=== PATIENT | male | born 1965 | race Caucasian/White ===

== ENCOUNTER 2021-01-08 08:35 | Day surgery (SDC) | payer MEDICARE, MEDICAID ==
[2021-01-07 14:32] LABS: BASOPHILS 0.2 % (0-2); EOSINOPHILS 2.7 % (0-7); HEMATOCRIT 46.1 % (42.0-54.0); HEMOGLOBIN 15.3 g/dL (13.5-17.5); IMMATURE GRANULOCYTES 0.6 % (0-5); LYMPHOCYTE ABS# 1.75 10x3/uL (1.32-3.57); LYMPHOCYTES 18.9 % (15-50); MCH 27.1 pg (26.0-34.0); MCHC 33.2 g/dL (31.0-37.0); MCV 81.7 fL (80.0-100.0); MEAN PLATELET VOLUME 9.5 fL (7.4-10.4); MONOCYTES 8.5 % (2-11); NEUTROPHIL ABS# 6.39 10x3/uL (1.78-5.38); NEUTROPHILS 69.1 % (40-80); PLATELET COUNT 248 10x3/uL (130-400); RBC 5.64 10x6/uL (4.20-6.10); WBC 9.3 10x3/uL (4.8-10.8)
[2021-01-07 14:44] LABS: ANION GAP 11.8 mmol/L (8-16); CARBON DIOXIDE 28.3 mmol/L (21.0-32.0); CREATININE - SERUM 1.2 mg/dL (0.6-1.3); POTASSIUM - SERUM 4.1 mmol/L (3.5-5.1)
[~2021-01-08] VITALS: Ht 165.1 cm; Wt 124.7 kg
[~2021-01-08 08:35] MED LIST: ABILIFY10 MG PO; ALBUTEROL SULF8.5 GM INH; AMBIEN10 MG PO; ATARAX 25 MG TA25 MG PO; CELEXA20 MG PO; FUROSEMIDE20 MG PO; GLUCOPHAGE500 MG PO; HYDROCODON-ACE1 EA10 PO; LEVEMIR IN100 UNITS/ SC; LOPRESSOR25 MG PO; LYRICA75 MG PO; NEXIUM40 MG PO; NOVOLOG100 UNIT/1 SC; SYMBICORT 16010.2 GM INH; ZANAFLEX4 MG PO; ZOCOR40 MG PO
[2021-01-08 09:00] VITALS: BP 132/71; Ht 165.1 cm; Wt 124.7 kg
--- NOTE | 2021-01-08 09:18 | NUR ---
PT HAS HERNIA TO UMBILICAL AREA, AREA ON ABD IS RED AND RAISED, PT STATES THAT IT IS NONTENDER.
[2021-01-08] MEDS ORDERED: HYDROCODON-ACE1 EA10 PO (12:26)
--- NOTE | 2021-01-08 14:19 | NUR ---
1415 PATIENT REQUESTED TO SIT ON SIDE OF BED TO ALLOW SOME OF HIS GAS TO ESCAPE. FAMILY MEMBER AT BEDSIDE. PATIENT SIPPING ON DIET SODA AND BELCHING. DRESSING TO ABDOMENT CDI. PATIENT IS TAKING IN FLUIDS TO TRY TO VOID SOON.
--- NOTE | 2021-01-08 16:18 | NUR ---
1539 PATIENT UP TO BATHROOM, VOIDED WITHOUT DIFFICULTY. IV D/C'D WITH TIP INTACT. PATIENT DRESSED AND DISCHARGE INSTRUCTIONS GIVEN. VOICED UNDERSTANDING. DISCHARGED TO PRIVATE CAR VIA WHEELCHAIR.
--- NOTE | 2021-01-08 16:18 | NUR ---
1500 PATIENT VOIDED SMALL AMOUNT.
--- NOTE | 2021-01-09 10:36 | OP ---
PATIENT NAME: CARLA DELEON MEDICAL RECORD: [id number] :63 LOCATION:D.OPS ADMISSION DATE: SURGEON: JORGE L BARROSO MD DATE OF OPERATION: 01/08/2021 PREOPERATIVE DIAGNOSES: 1. Ventral hernia. 2. Chronic obstructive pulmonary disease. 3. Hypertension. 4. Hyperlipidemia. 5. Diabetes mellitus. POSTOPERATIVE DIAGNOSES: 1. Ventral hernia. 2. Chronic obstructive pulmonary disease. 3. Hypertension. 4. Hyperlipidemia. 5. Diabetes mellitus. PROCEDURE: Ventral hernia repair with [address] mesh. SURGEON: Jorge L Barroso MD REPORT OF PROCEDURE: The patient's abdomen was prepped and draped in sterile fashion. A semicircular incision was made on the inferior aspect of the umbilicus. Electrocautery was used to dissect through the subcutaneous tissues. We came around the large hernia sac, which was not reducible. We eventually were able to eviscerate this hernia sac and its fatty contents out through the incision site. I opened up the hernia sac and was able to eventually free up any of the attachments to the hernia sac and pushed the omental contents back down into the abdominal cavity. The hernia sac was then transected up to the fascial edges. The fascial defect was about 4 cm wide. We freed up the fascia on the top and the bottom and inserted an [address] mesh in an underlay fashion. This was sutured down on all 4 sides using interrupted 0 Prolenes. The wound was then irrigated out with normal saline. The fascia was closed transversely using a running 0 Vicryl. The umbilicus was then tacked down to the fascia with a single interrupted 3-0 Vicryl. Multiple interrupted 3-0 Vicryls were used to reapproximate the subcutaneous tissues. The skin was then infused with a total of 10 mL of 0.25% Marcaine plain and then closed with running subcutaneous 5-0 Monocryl. COMPLICATIONS: None. CONDITION: Stable. ANESTHESIA: General endotracheal and local. BLOOD LOSS: Minimal. 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
== END 2021-01-08 15:43 | disposition home or self-care (01) ==
LOC: D.OPS 08:35
PROVIDERS: ATTEND Surgery
DX: K43.9 Ventral hernia without obstruction or gangrene (principal); J44.9 Chronic obstructive pulmonary disease, unspecified; I10 Essential (primary) hypertension; E78.5 Hyperlipidemia, unspecified; E11.9 Type 2 diabetes mellitus without complications